=== PATIENT | male | born 1980 | race Caucasian/White ===

== ENCOUNTER 2020-07-21 02:48 | Emergency (ER) | payer OTHER, SELFPAY ==
--- NOTE | 2020-07-21 03:02 | DI.RAD.S_ITS ---
PROCEDURE: XR HAND RT MIN 3V INDICATIONS: R hand ring finger PIP joint swelling TECHNIQUE: 3 views of the hand(s) acquired. COMPARISON: None. FINDINGS: Bones: No fractures or dislocations. Carpal bones are normally aligned. No suspicious bony lesions. Soft tissues: Soft tissue swelling is seen involving the dorsal aspect of the proximal interphalangeal joint of the 4th finger. IMPRESSION: Soft tissue swelling seen involving the 4th finger at the level of the proximal interphalangeal joint, without an underlying bony abnormality seen. Differential diagnosis would an underlying cyst, soft tissue nodule, or soft tissue mass. If clinically appropriate, please consider dedicated follow-up MRI (assuming that there is no contraindication). Note: No significant discrepancy from the preliminary report. Dictated by: Gus Tim M.D. on 07/21/2020 at 7:15 Approved by: Gus Tim M.D. on 07/21/2020 at 7:17
--- NOTE | 2020-07-21 03:05 | ED.GENADULT ---
HPI - General Adult General Chief complaint: Extremity Injury, Upper Stated complaint: Abscess on finger Time Seen by Provider: 07/21/20 02:54 Source: patient Mode of arrival: Ambulatory Limitations: no limitations History of Present Illness HPI narrative: Patient is a 39-year-old male here for evaluation of was initially thought to be a abscess on the back of his right ring finger. Patient states that approximately 9 days ago while working with a wrench his hand slipped and he hit this finger on a bolt. He states that over this time the finger has had some swelling. [place]. He went to an urgent care where he stated that the provider there were injected a small amount of lidocaine and tried to pull out any fluid there was only very small amount of blood that resulted. He states that since that time he has had some more swelling. Related Data Home Medications Medication Instructions Recorded Confirmed [LAMICTOL] #0 05/21/03 Previous Rx's Medication Instructions Recorded cephalexin 500 mg PO QID 5 Days #19 cap 07/21/20 Allergies Allergy/AdvReac Type Severity Reaction Status Date / Time No Known Drug Allergies Allergy Verified 07/21/20 03:07 Review of Systems Constitutional Constitutional: Reports system reviewed and no additional complaints, except as documented Musculoskeletal Comments: Swelling to the back of the right ring finger Integumentary/Breasts Skin/Breast: Reports system reviewed and no additional complaints, except as documented Comments: Swelling to the back of the right ring finger Hematologic/Lymphatic On Anticoagulants: No Allergic/Immunologic Allergic/Immunologic: Reports system reviewed and no additional complaints, except as documented Patient History Medical History Healthy adult Social History Smoking Status: Current every day smoker Exam Initial Vital Signs Initial Vital Signs: Vital Signs Temperature 98.7 F 07/21/20 03:07 Pulse Rate 78 07/21/20 03:07 Respiratory Rate 17 07/21/20 03:07 Blood Pressure 121/69 07/21/20 03:07 Pulse Oximetry 99 07/21/20 03:07 Const General: cooperative and comfortable Limitations: mental status not altered Cardio Pulses: radial pulses present on the right Skin Other: Patient does have an isolated redness and swelling to the dorsum of the right ring finger over the PIP joint. There is a small scab over the center of this area. Neuro General: patient alert and patient awake Extrem Other: Patient does have some limited range of motion of the PIP joint because of the swelling otherwise the rest of his right hand exam is unremarkable. Procedures Abscess I/D I&D #1: Site: other (Ring finger) Side (if applicable): right Local Anesthetic: lidocaine 1% and with bicarb Amount of anesthesia used (mL): 4 Technique: incised with #11 blade Irrigation: No Packing used?: none Nerve Block Nerve Block 1: Time out performed: Yes Local Anesthetic: lidocaine 1% and with bicarb Amount of anesthesia used (mL): 4 Side: right Nerve Blocks: digital Procedure Successful: Yes Patient Tolerated Procedure: Well and No complications Complications: none Course Orders Ordered: ED Orders 07/21/20 03:02 XR hand RT 2V Stat Discontinued Medications Cephalexin HCl (Cephalexin 250 Mg Capsule) 500 mg PO NOW ONE Stop: 07/21/20 03:39 Last Admin: 07/21/20 03:41 Dose: 500 mg Documented by: Diphtheria/Tetanus/Acell Pertussis (Tet,Diph,Pertuss(Acell),Vac/Pf 0.5 Ml Syringe) 0.5 ml IM .ONCE ONE Stop: 07/21/20 03:08 Last Admin: 07/21/20 03:11 Dose: 0.5 ml Documented by: Lidocaine/Sodium Bicarbonate (Lido 1%/Sod Bicarb 8.4% (10ml) 10 Ml Syringe) 10 ml INJ NOW ONE Stop: 07/21/20 03:06 Last Admin: 07/21/20 03:10 Dose: 10 ml Documented by: Vital Signs Vital signs: Vital Signs - 8 hr 07/21/20 03:07 Temperature 98.7 F Pulse Rate 78 Respiratory Rate 17 Blood Pressure 121/69 Pulse Oximetry 99 Medical Decision Making Imaging Data Extremity x-ray #1: Attestation: I personally reviewed and interpreted this imaging study as follows: My Impression: No fractures or dislocations MDM Narrative Medical decision making narrative: He did have isolated redness and swelling over the dorsum of the right ring finger over the PIP joint. There was a small scab in this area. After a digital block was performed I did unroof the scab in a very small amount of purulent material resulted. I then probed deeper with a contact applicator and also sharp debridement with the blade and there was only return of blood. His presentation, like the time with symptoms and the manipulation that was done today we will place him on antibiotics. He was given 1st dose here in the emergency department. His tetanus was also updated. He was given return precautions and care instructions. He expressed understanding agreement. Discharge Plan Departure Patient Disposition: Home Clinical Impression: Cellulitis Instructions: DI for Cellulitis -- Adult Activity Restrictions/Additional Instructions: I expect some drainage from the area. Just keep the area covered with a bandage in change it as needed. We will start you on some antibiotics. Your 1st dose was given here in the emergency department. 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 You can wash your hands like normal. You can use soap and water however I do not recommend that you soak your hand in anything until the wound is healed. Return to the emergency department for any new or worsening symptoms Prescriptions: New cephalexin 500 mg capsule 500 mg PO QID 5 Days Qty: 19 RF: 0 No Action [LAMICTOL] Qty: 0 RF: 0
[2020-07-21 03:07] VITALS: BP 121/69; PULSE 78; RESP 17; TEMP 37.1; O2SAT 99; BMI 20.7
[2020-07-21] MEDS: LIDO 1%/SOD BICARB 8.4% (10ML) 10 ML SYRINGE INJ (03:10)
[2020-07-21] MEDS: TET,DIPH,PERTUSS(ACELL),VAC/PF 0.5 ML SYRINGE IM (03:11)
[2020-07-21] MEDS: cephALEXin 250 MG CAPSULE 500 MG PO (03:41)
[2020-07-21 03:49] VITALS: BP 109/73; PULSE 71; RESP 16; O2SAT 96
== END 2020-07-21 03:50 | disposition home or self-care (01) ==
PROVIDERS: Emergency Provider Emergency Medicine
DX: L03.011 Cellulitis of right finger (principal); Z23 Encounter for immunization
CPT/HCPCS: 10060; 64450; 73120; 73130; 90471; 99283; 99284; 90715